=== PATIENT | female | born 1965 | race American Indian/Alaskan Native ===

== ENCOUNTER 2016-09-26 10:24 | Outpatient (CLI) | payer OTHER ==
[2016-09-26 11:14] LABS: Hematocrit 41.5 % (30.3-42.9); Hemoglobin 13.2 gm/dl (10.1-14.3); Mean Corpuscular HGB Conc 32 % (30-34); Mean Corpuscular Volume 78 fl (79-97); Platelet Count 206 K/mm3 (140-440); Red Blood Count 5.35 M/mm3 (3.65-5.03); Red Cell Distribution Width 14.5 % (13.2-15.2); White Blood Count 6.7 K/mm3 (4.5-11.0)
[2016-09-26 11:17] LABS: Mean Corpuscular Hemoglobin 25 pg (28-32)
[2016-09-26 11:33] LABS: Alanine Aminotransferase 18 units/L (7-56); Albumin/Globulin Ratio 1.3 %; Alkaline Phosphatase 58 units/L (35-129); BUN/Creatinine Ratio 21.42; Bilirubin,Total 0.5 mg/dL (0.1-1.2); Blood Urea Nitrogen 15 mg/dL (7-17); Calcium 9.2 mg/dL (8.4-10.2); Carbon Dioxide 25 mmol/L (22-30); Cholesterol 204 mg/dL (50-199); Glucose 117 mg/dL (65-100); HDL Cholesterol 52 mg/dL (40-59); LDL Cholesterol,Direct 132 mg/dL (50-130); Total Protein 7.2 g/dL (6.3-8.2); Triglycerides 101 mg/dL (2-149); Uric Acid 5.8 mg/dL (3.5-7.6)
[2016-09-26 11:34] LABS: Anion Gap 15 mmol/L; Chloride 104.8 mmol/L (98-107); Sodium 141 mmol/L (137-145)
[2016-09-26 11:39] LABS: Erythrocyte Sedimentation Rate 18 mm/Hr (0-20)
--- NOTE | 2016-09-26 11:57 | XRay Report ---
Bilateral hands: Joint pain. Mild periarticular spurring is identified around the second right PIP joint with mild thickening of the surrounding soft tissues. The joint space is mildly narrowed. With this exception the bones and joints as well as the soft tissues of the right hand are unremarkable. The bones, joints, and soft tissues of the left hand are unremarkable. Impressions: Focal degenerative change of the second right digit. No evidence of generalized arthritis.
== END 2016-09-26 10:25 | disposition home or self-care (01) ==
LOC: XRAY 10:24
PROVIDERS: ATTEND Internal Medicine Rheumatology
DX: M25.841 Other specified joint disorders, right hand (principal); Z79.899 Other long term (current) drug therapy
CPT/HCPCS: 36415; 80053; 80061; 82164; 84550; 85027; 85652; 86038; 86140; 86200; 86235; 86618; 86812

== ENCOUNTER 2019-04-21 12:54 | Outpatient (CLI) | payer OTHER ==
--- NOTE | 2019-04-22 14:59 | Mammography Report ---
DIGITAL SCREENING MAMMOGRAM WITH CAD, 04/21/2019 INDICATION: Routine screening mammography. TECHNIQUE: Digital bilateral 2D mammography was obtained in the craniocaudal and mediolateral obliq ue projections. This examination was interpreted with the benefit of Computer-Aided Detection analysi s. COMPARISON: 04/19/2018 FINDINGS: Breast Density: There are scattered areas of fibroglandular density. There is no evidence of dominant mass, suspicious calcifications or architectural distortion in eithe r breast. IMPRESSION: No mammographic evidence of malignancy. Follow up recommendation: Routine yearly BI-RADS Category 1: Negative. A "normal" or negative report should not discourage follow up or biopsy of a clinically significant f inding. A written summary of these findings will be mailed to the patient. The patient will be entered into a mammography reporting system which will generate a reminder letter for the patient's next appointmen t at the appropriate interval. The [employer] recommends yearly mammograms starting at age 40 and continuing as l mary as a woman is in good health. Breast MRI is recommended for women with an approximate 20-25% or greater lifetime risk of breast cancer, including women with a strong family history of breast or ova chloe cancer or who have been treated for Hodgkin's disease. Signer Name: Emir Panchal MD Signed: 04/22/2019 2:55 PM Workstation Name: [id number]
== END 2019-04-21 12:55 | disposition home or self-care (01) ==
LOC: MAMMO 12:54
PROVIDERS: ATTEND Internal Medicine
DX: Z12.31 Encounter for screening mammogram for malignant neoplasm of breast (principal)
CPT/HCPCS: 77067